=== PATIENT | male | born 1980 | race Caucasian/White ===

== ENCOUNTER 2017-09-11 09:21 | Day surgery (SDC) | payer OTHER ==
[2017-09-11 09:53] LABS: #Basophils 0.1 thou/uL (0.0-0.2); #Eosinphils 0.4 thou/uL (0.0-0.7); #Lymphocytes 1.7 thou/uL (1.20-3.40); #Monocytes 0.4 thou/uL (0.11-0.59); #Neutrophils 5.1 thou/uL (1.40-6.50); %Basophils 0.7 % (0.0-1.0); %Eosinophils 5.4 % (0.0-10.0); %Lymphocytes 22.5 % (21.0-51.0); %Monocytes 5.1 % (0.0-10.0); Hematocrit 47.9 % (42.0-52.0); Mean Platelet Volume 7.4 fL (7.4-10.4); Red Blood Cell (RBC) Count 4.94 mill/uL (4.70-6.10); White Blood Cell (WBC) Count 7.7 thou/uL (4.8-10.8)
[2017-09-11 10:00] LABS: Prothrombin Time 12.9 SEC (12.0-14.7)
[2017-09-11 10:11] LABS: Anion Gap 12 mmol/L (10-20); BUN (Urea Nitrogen) 15 mg/dL (8.9-20.6); Calc. Creatinine Clearance 127 mL/min (70-130); Carbon Dioxide 27 mmol/L (22-29); Chloride 103 mmol/L (98-107); Estimated GFR-MDRD 76
[2017-09-11] MEDS ORDERED: CEFAZOLIN/Water 2 GM/20 ML SYRINGE ONE (10:13)
[2017-09-11] MEDS ORDERED: Midazolam HCl 2 mg/2 ml Vial ONE ×2 (12:20→13:16)
[2017-09-11] MEDS ORDERED: Thrombin 5000 UNITS/5 ML VIAL ONE ×2 (13:11→15:33)
[2017-09-11] MEDS ORDERED: Bacitracin Zinc Ointment 30 gm TUBE ONE (13:11)
[2017-09-11] MEDS ORDERED: Sodium Chloride 0.9% 10 ML ONE (13:11)
[2017-09-11] MEDS ORDERED: Fentanyl 250 MCG/5 ML VIAL ONE (13:16)
[2017-09-11] MEDS ORDERED: Morphine 4 MG/ML Carpuject ONE (13:16)
[2017-09-11] MEDS ORDERED: Ondansetron HCl/PF 4 MG/2 ML Vial ONE (15:15)
[2017-09-11] MEDS ORDERED: Glycopyrrolate 0.2 MG/ML 5 ML SYRINGE ONE (15:15)
[2017-09-11] MEDS ORDERED: Dexamethasone 20 MG/5 ML VIAL ONE (15:15)
[2017-09-11] MEDS ORDERED: Lidocaine 1% PF 5 ML VIAL ONE (15:15)
[2017-09-11] MEDS ORDERED: Propofol 200 MG/20 ML VIAL ONE (15:15)
[2017-09-11] MEDS ORDERED: Ondansetron HCl/PF 4 MG/2 ML Vial IVP PRN ×2 (16:13→16:47)
[2017-09-11] MEDS ORDERED: tiZANidine HCl 4 MG TAB PO PRN (16:13)
[2017-09-11] MEDS ORDERED: Acetaminophen 325 MG TAB PO PRN (16:13)
[2017-09-11] MEDS ORDERED: Promethazine HCl 25 MG/ML VIAL IM PRN ×2 (16:13→16:47)
[2017-09-11] MEDS ORDERED: Fleet Enema 133 ML BOT PR PRN (16:13)
[2017-09-11] MEDS ORDERED: Bisacodyl 10 MG SUPP PR PRN (16:13)
[2017-09-11] MEDS ORDERED: Milk Of Magnesia 30 ML UDCUP PO PRN (16:13)
[2017-09-11] MEDS ORDERED: Morphine 4 MG/ML VIAL SLOW IVP PRN (16:13)
[2017-09-11] MEDS ORDERED: Mag-Al 1200 mg/1200 mg/30 ML UDCUP PO PRN (16:13)
[2017-09-11] MEDS ORDERED: traMADol HCl 50 MG TAB PO PRN (16:13)
[2017-09-11] MEDS ORDERED: Fentanyl 100 MCG/2 ML VIAL ONE ×3 (16:43→18:12)
[2017-09-11] MEDS ORDERED: HYDROmorphone 2 MG/ML VIAL SLOW IVP PRN (16:47)
[2017-09-11] MEDS ORDERED: Promethazine HCl 25 MG/ML VIAL SLOW IVP PRN (16:47)
[2017-09-11] MEDS: Sodium Chloride 0.9% 1,000 ML IV SCH (19:27)
[2017-09-11] MEDS: HYDROcodone/Acetaminophen 7.5/325 mg Tablet PO PRN (21:58)
[2017-09-11] MEDS: CEFAZOLIN/Water 2 GM/20 ML SYRINGE SLOW IVP SCH (21:58)
[2017-09-12] MEDS: Acetaminophen/Codeine 30-300mg Tablet PO PRN ×2 (03:07→06:14)
[2017-09-12 03:57] VITALS: TEMP 97.8
[2017-09-12] MEDS: Sodium Chloride 0.9% 1,000 ML IV SCH (04:53)
[2017-09-12] MEDS: CEFAZOLIN/Water 2 GM/20 ML SYRINGE SLOW IVP SCH (05:53)
[2017-09-12 08:55] VITALS: BP 108/68
[2017-09-12] MEDS: HYDROcodone/Acetaminophen 7.5/325 mg Tablet PO PRN (10:38)
--- NOTE | 2017-09-14 13:28 | OP ---
DATE OF SURGERY: 09/11/2017 PREPROCEDURE DIAGNOSIS: Right S1 radiculopathy with right L5-S1 disk extrusion. POSTPROCEDURE DIAGNOSIS: Right S1 radiculopathy with right L5-S1 disk extrusion. PROCEDURES: 1. Right L5-S1 hemilaminotomy, foraminotomy, and diskectomy. 2. Use of operative microscope for microdissection. SURGEON: Abilio Raymond M.D. PATIENT SERVICES SPECIALIST: Mason Mejía PA-C. DESCRIPTION OF PROCEDURE: After informed consent was obtained from the patient, the patient brought to the OR. Proper patient pause and identification was carried out. He was placed under excellent g eneral endotracheal anesthesia and positioned prone on the operating room table. All appropriate poi nts were padded. We identified the L5-S1 segment. A linear jaime was made in this region. This yulia on was also sterilely cleansed, prepared, and draped. Proper patient pause and identification was ca rried out. The wound was then opened with a combination of sharp, monopolar, and blunt dissection. The right L5-S1 segment was exposed. Localization film confirmed our area of interest. We then perf ormed right L5-S1 hemilaminotomy, foraminotomy, and with the use of an operative microscope for micro dissection, diskectomy. I was satisfied with the decompression of the nerve root and we obtained the removal, multiple disk fragments obtained the satisfactory removal of the disk fragments, excellent decompression of the nerve root. Copious irrigation occurred. Hemostasis was maximized throughout a nd the wound was closed in anatomic layers following the sprinkling of vancomycin powder. The patien t then emerged from anesthesia.
== END 2017-09-12 11:25 | disposition home or self-care (01) ==
LOC: SDC 09:21 → SURG A 17:13 → SDC 09-12 11:25
PROVIDERS: ATTEND Surgery
PROC: 01NB0ZZ Release Lumbar Nerve, Open Approach (ICD-10-PCS; principal; 2017-09-12)
PROC: 0SB20ZZ Excision of Lumbar Vertebral Disc, Open Approach (ICD-10-PCS; principal; 2017-09-12)
DX: M51.17 Intervertebral disc disorders with radiculopathy, lumbosacral region (principal); Z98.52 Vasectomy status; Z90.89 Acquired absence of other organs
CPT/HCPCS: 36415; 76001; 80048; 85025; 85610; 85730; 93005; 93010; 96374; A4216; J0131; J1100; J2001; J2250; J2270; J2405; J2704; J3010; J3370; J3490